=== PATIENT | male | born 1980 | race Caucasian/White ===

== ENCOUNTER 2018-01-05 13:48 | Emergency (ER) | payer OTHER ==
[~2018-01-05] VITALS: Ht 188 cm; Wt 99.8 kg
[2018-01-05 14:10] VITALS: Ht 188 cm; Wt 99.8 kg
[2018-01-05 15:46] VITALS: BP 133/85
== END 2018-01-05 15:46 | disposition home or self-care (01) ==
LOC: ED 13:48
DX: J06.9 Acute upper respiratory infection, unspecified (principal)

== ENCOUNTER 2018-01-21 14:44 | Emergency (ER) | payer OTHER ==
[~2018-01-21] VITALS: Ht 188 cm; Wt 99.8 kg
[2018-01-21 14:48] VITALS: BP 144/72; Ht 188 cm; Wt 99.8 kg
== END 2018-01-21 16:09 | disposition home or self-care (01) ==
LOC: ED 14:44
DX: K03.81 Cracked tooth (principal); J45.909 Unspecified asthma, uncomplicated
CPT/HCPCS: J1885

== ENCOUNTER 2018-12-15 12:36 | Emergency (ER) | payer SELFPAY ==
[~2018-12-15] VITALS: Ht 185.4 cm; Wt 100.2 kg
[2018-12-15 12:41] VITALS: BP 135/80
== END 2018-12-15 13:31 | disposition home or self-care (01) ==
LOC: ED 12:36
DX: J02.9 Acute pharyngitis, unspecified (principal); J45.909 Unspecified asthma, uncomplicated

== ENCOUNTER 2019-01-21 17:17 | Emergency (ER) | payer SELFPAY ==
[~2019-01-21] VITALS: Ht 188 cm; Wt 101.6 kg
[2019-01-21 17:19] VITALS: Ht 188 cm; Wt 101.6 kg
[2019-01-21 19:09] VITALS: BP 133/71
== END 2019-01-21 19:09 | disposition home or self-care (01) ==
LOC: ED 17:17
DX: K04.7 Periapical abscess without sinus (principal); J45.909 Unspecified asthma, uncomplicated
CPT/HCPCS: J0561; J1100; J1885

== ENCOUNTER 2019-04-22 15:39 | Emergency (ER) | payer OTHER ==
[~2019-04-22] VITALS: Ht 188 cm; Wt 98.4 kg
[2019-04-22 15:43] VITALS: BP 119/82; Ht 188 cm; Wt 98.4 kg
== END 2019-04-22 18:42 | disposition home or self-care (01) ==
LOC: ED 15:39
DX: S66.911A Strain of unspecified muscle, fascia and tendon at wrist and hand level, right hand, initial encounter (principal); J45.909 Unspecified asthma, uncomplicated; W22.8XXA Striking against or struck by other objects, initial encounter; Y93.89 Activity, other specified; Y92.89 Other specified places as the place of occurrence of the external cause; Y99.8 Other external cause status
CPT/HCPCS: A4570

== ENCOUNTER 2019-05-08 14:34 | Emergency (ER) | payer OTHER ==
[~2019-05-08] VITALS: Ht 188 cm; Wt 98.9 kg
[2019-05-08 14:37] VITALS: Ht 188 cm; Wt 98.9 kg
[2019-05-08 15:23] VITALS: BP 134/85
== END 2019-05-08 15:23 | disposition home or self-care (01) ==
LOC: ED 14:34
DX: L03.012 Cellulitis of left finger (principal); J45.909 Unspecified asthma, uncomplicated
CPT/HCPCS: 82962

== ENCOUNTER 2019-11-21 01:31 | Emergency (ER) | payer OTHER ==
[~2019-11-21] VITALS: Ht 188 cm; Wt 100.7 kg
[2019-11-21 01:40] VITALS: Ht 188 cm; Wt 100.7 kg
[2019-11-21 02:54] VITALS: BP 136/82
== END 2019-11-21 02:54 | disposition home or self-care (01) ==
LOC: ED 01:31
DX: K08.89 Other specified disorders of teeth and supporting structures (principal); J45.909 Unspecified asthma, uncomplicated
CPT/HCPCS: J3010